=== PATIENT | female | born 1965 | race Caucasian/White ===

== ENCOUNTER → 2019-01-21 | Outpatient (CLI) | payer BC ==
--- NOTE | 2019-01-28 08:02 | SLEEPCENT ---
DATE OF PROCEDURE: 01/21/2019 ORDERING PROVIDER: Dr. Lambert, Copy to Dr. Mosley. INTERPRETATION: Nocturnal polysomnography was performed for evaluation of sleep physiology in this patient with history of excessive somnolence, snoring who has comorbidities of hypertension and acid reflux disease. 8 hours and 5 minutes of data were reviewed. There were 301.5 minutes of sleep identified. Sleep latency was prolonged at 81.5 minutes. REM latency was prolonged at 276 minutes. Sleep architecture showed some fragmentation. There was one REM cycle. Overall sleep efficiency 62.8%. The electrocardiogram shows a sinus rhythm with an average heart rate of 62 beats per minute. Occasional PVCs were noted. EEG showed some coarsening in the background, otherwise, normal waveforms for awake and sleep. There were 54 respiratory events identified of 10 seconds in duration or greater for an apnea-hypopnea index of 10.7. The events were primarily obstructive not exclusive to sleep stage nor body posture. Arousals from respiratory events occurred 5.8 times per hour and oxygen desaturations were seen into the 80s. There was also significant limb activity three to four trains of 30 events. Limb movement arousal index 11.9. IMPRESSION: 1. Obstructive sleep apnea syndrome (G47.33). Apnea-hypopnea index 10.7. 2. Periodic limb movement disorder (G47.61). Limb movement arousal index 11.9. RECOMMENDATIONS: The patient should be encouraged to return to the sleep disorder center for pressure therapy. In the interim alcohol and sedative avoidance should be practiced and caution exercised during operation of motor vehicles. Pending results of pressure therapy, further interventions to reduce the frequency of arousal from limb activity may also be helpful.
== END ==
LOC: M SLEEP 19:48
PROVIDERS: ATTEND Internal Medicine Pulmonary Disease
DX: G47.33 Obstructive sleep apnea (adult) (pediatric) (principal); G47.61 Periodic limb movement disorder

== ENCOUNTER → 2019-03-05 | Outpatient (CLI) | payer BC ==
--- NOTE | 2019-03-14 09:08 | SLEEPCENT ---
DATE OF STUDY: 03/05/2019 ORDERED BY: Dr. Lambert Nocturnal polysomnography was performed for the titration of pressure therapy in this patient with obstructive sleep apnea syndrome and apnea-hypopnea index of 10.7. For testing, the patient was fit with a ResMed Quattro full face mask of medium size and 4 cm of water pressure were applied to the circuit and the lights were extinguished. 7 hours and 35 minutes of data were reviewed. There were 353 minutes of sleep identified. Sleep latency was prolonged at 50.5 minutes. Rapid eye movement (REM) latency was prolonged at 157.5 minutes. Sleep architecture improved with the application of optimal pressure therapy. Overall sleep efficiency was 78.5%. The electrocardiogram showed a sinus rhythm with an average heart rate of 62 beats per minute. Electroencephalogram (EEG) showed reasonably normal waveforms for awake and sleep. Respiratory events were fully palliated with C-PAP at a pressure of +8. There was some limb activity early in the study, significantly less so later in the test. Limb movement arousal index was 1.9. IMPRESSION: Obstructive sleep apnea syndrome (G47.33). RECOMMENDATION: Nightly use of pressure therapy at 8 cm of water.
== END ==
LOC: M SLEEP 19:46
PROVIDERS: ATTEND Internal Medicine Pulmonary Disease
DX: G47.33 Obstructive sleep apnea (adult) (pediatric) (principal)

== ENCOUNTER → 2021-05-04 | Outpatient (CLI) | payer BC ==
--- NOTE | 2021-05-04 13:55 | PFTRPT ---
Site: [facility], [address] [place] [address], [address] ID: [id number] Name: KRYSTLE OLIVARES Visit Date: 05/04/2021 Second ID: [id number] Referring Doctor: Addie Lambert MD Reviewing Doctor: Teddy Fleming MD Brick Siding Applicator: Nuha JOHNSON RRT Age: 55 : 1965 Sex: Female Race: Height: 65.50 Inches Weight: 291.00 Lbs BSA: 2.33 Order IDs: [id number] Requested Test(s): <RESP-PFT.DLCO> Diagnosis: G47.33 test meet the ATS standards for acceptability and repeatability. Pt was given four puffs of albuterol for post bronchodilator. Review Status: Not Reviewed Pre-Bronch Post-Bronch Pred Actual %Pred Actual %Chng SPIROMETRY FVC (L) 3.60 2.46 68 2.44 FEV1 (L) 2.81 1.90 67 1.86 -2 FEV1/FVC (%) 79 77 97 76 -1 FEF 25% (L/sec) 5.24 3.98 75 3.97 FEF 50% (L/sec) 3.75 2.15 57 2.03 -5 FEF 75% (L/sec) 1.30 0.64 49 0.53 -17 FEF 25-75% (L/sec) 2.61 1.62 62 1.47 -9 FEF Max (L/sec) 6.73 5.36 79 5.38 FIVC (L) 2.57 2.57 FIF 50% (L/sec) 4.16 5.04 121 5.32 5 FIF Max (L/sec) 5.09 5.42 6 MVV (L/min) 97 87 90 Expiratory Time (sec) 6.59 7.01 6 Back Extrap Vol (L) 0.06 0.07 18 Time To FEFmax (sec) 0.069 0.067 -3 LUNG VOLUMES SVC (L) 3.30 2.60 78 IC (L) 2.30 2.57 111 ERV (L) 1.00 0.03 3 TGV (L) 2.98 2.74 92 RV (Pleth) (L) 1.98 2.71 136 TLC (Pleth) (L) 5.28 5.32 100 RV/TLC (Pleth) (%) 38 51 134 DIFFUSION DLCOunc (ml/min/mmHg) 22.69 20.20 89 DLCOcor (ml/min/mmHg) 22.69 20.20 89 DL/VA (ml/min/mmHg/L) 4.30 4.67 108 VA (L) 5.28 4.33 81 BHT (sec) 9.90 IVC (L) 2.54 TLC (SB) (L) 4.48 AIRWAYS RESISTANCE Raw (cmH2O/L/s) 1.86 1.64 87 Gaw (L/s/cmH2O) 1.03 0.61 59 sRaw (cmH2O*s) 4.76 4.15 87 sGaw (1/cmH2O*s) 0.20 0.24 120 BLOOD GASES Hgb (gm/dL) 13.4
== END ==
LOC: M CARPUL 12:57
PROVIDERS: ATTEND Internal Medicine Pulmonary Disease
DX: G47.33 Obstructive sleep apnea (adult) (pediatric) (principal)

== ENCOUNTER → 2024-08-21 | Outpatient (CLI) | payer BC | LOC: M SLEEP HO 11:50 | PROVIDERS: ATTEND Internal Medicine Pulmonary Disease | DX: R06.83 Snoring (principal) ==